=== PATIENT | female | born 1950 | race Two or more races ===

== ENCOUNTER 2021-07-07 10:01 | Day surgery (SDC) | payer MEDICAID ==
[~2021-07-07] VITALS: Ht 152.4 cm; Wt 57.6 kg
[2021-07-07] MEDS ORDERED: IV SET PRIMARY PUMP SET 1 EA INFUS.SET MC ONE (10:32)
[2021-07-07] MEDS ORDERED: IV NS 0.9% 500 ML IV ONE (10:32)
[2021-07-07] MEDS ORDERED: LIDOCAINE HCL/MPF 1% 30 ML VIAL IJ ONE (10:32)
[2021-07-07] MEDS ORDERED: IODIXANOL 150 ML IV ONE (10:32)
[2021-07-07] MEDS ORDERED: FENTANYL PF 100MCG/2ML AMPUL ONE (10:57)
[2021-07-07] MEDS ORDERED: IV NS 0.9% 50 ML IV ONE (10:58)
[2021-07-07] MEDS ORDERED: IODIXANOL 320MG/ML 50 ML IV ONE (11:39)
[2021-07-07] MEDS ORDERED: HEPARIN SODIUM, PORCINE 5000 UNITS/1 ML VIAL ONE (11:40)
[2021-07-07] MEDS ORDERED: CLOPIDOGREL BISULFATE 300 MG TABLET ONE (12:13)
--- NOTE | 2021-07-07 13:10 | NUR ---
RN NOTES RECEIVED PT FROM JOINTER OPERATOR STAFF VIA BED, PT IS AWAKE, ALERT AND ORIENTED, [place]ET[place]ESE SPEAKING, DENIES PAIN, NOT IN DISTRESS, AT BEDSIDE, KEPT COMFORTABLE IN BED, ROOM SET UP ORIENTATION PROVIDED TO PT THROUGH A [place]ESE SPEAKING STAFF, VERBALIZED UNDERSTANDING, MIDLINE AT RIGHT UPPER ARM IN PLACE, NO BLEEDING NOTED TO CATH SITE AT RIGHT GROIN, NO BLEEDING NOTED AT AV SHUNT, VITALS TAKEN, POST PROCEDURE ORDERS NOTED. VS BP 159/72 P 75 RR 20 TEMP 97.6 O2SAT 100% AT ROOM AIR.
--- NOTE | 2021-07-07 15:15 | NUR ---
RN NOTES PT IN BED, RESTING, KEPT PT FLAT IN BED ORDERED, RECEIVED ORDERS FROM DR. ROMERO TO TRANSFER PT BACK TO [facility], NO BLEEDING NOTED TO SITE, TRANSPORTATION ARRANGED BY JEWELRY MECHANIC, REPORT GIVEN TO KANNAN GRANT AT [facility], BP 142/72 P 79 O2SAT 99% ON ROOM AIR, PT PICKED UP BY 2 AMBULANCE PERSONNEL, LEFT VIA GUERNEY IN STABLE CONDITION.
[2021-07-30] MEDS ORDERED: SODI473S8 TOP (14:09)
[2021-07-30] MEDS ORDERED: Prosource PO (14:09)
[2021-07-30] MEDS ORDERED: ACET325T53 PO (14:09)
[2021-07-30] MEDS ORDERED: LEVO50TA PO (14:09)
[2021-07-30] MEDS ORDERED: Valsartan 80MG PO (14:09)
[2021-07-30] MEDS ORDERED: METO25TA20 PO (14:09)
[2021-07-30] MEDS ORDERED: SEVE800T7 PO (14:09)
[2021-07-30] MEDS ORDERED: ASPI-1169 PO (14:09)
[2021-07-30] MEDS ORDERED: EPOE40007 IV (14:09)
[2021-07-30] MEDS ORDERED: PANT40TA49 PO (14:09)
[2021-07-30] MEDS ORDERED: CLOP75TA15 PO (14:09)
== END 2021-07-07 15:00 | disposition short-term general hospital (02) ==
LOC: CATHLAB 10:01
PROVIDERS: ATTEND Internal Medicine
DX: I70.212 Atherosclerosis of native arteries of extremities with intermittent claudication, left leg (principal)
CPT/HCPCS: 37224; 37229; 37232; 75625; 75710; 99152; 99153; C1725 ×2; C1726; C1769 ×2; C1887 ×3; C1894; J1644 ×2; J3010; J3490; J7040; Q9967; 36246; 37184; 37233; G0500

== ENCOUNTER 2021-07-23 04:12 | Inpatient (IN) | payer MEDICAID ==
[~2021-07-23] VITALS: Ht 170.2 cm; Wt 61.7 kg
[2021-07-23 05:52] LABS: BASOPHILS # (AUTO) 0.1 K/uL (0.0-0.2); BASOPHILS % (AUTO) 0.5 % (0.0-2.0); CARBON DIOXIDE 31 mmol/L (21-32); CHLORIDE 94 mmol/L (98-107); CREATININE 2.4 mg/dL (0.6-1.3); EOSINOPHILS % (AUTO) 1.8 % (0.0-6.0); GLUCOSE 132 mg/dL (74-106); HEMATOCRIT 28 % (33-45); LYMPHOCYTES # (AUTO) 0.8 K/uL (0.8-4.8); LYMPHOCYTES % (AUTO) 8.3 % (20.0-44.0); MEAN CORPUSCULAR HGB CONC 33 g/dl (31.0-36.0); MEAN CORPUSCULAR VOLUME 103 fL (82-100); MONOCYTES # (AUTO) 0.8 K/uL (0.1-1.30); MONOCYTES % (AUTO) 8.1 % (2.0-12.0); NEUTROPHILS # (AUTO) 8.3 K/uL (1.8-8.9); NEUTROPHILS % (AUTO) 81.3 % (43.0-81.0); PLATELET COUNT (AUTO) 235 K/uL (150-450); POTASSIUM 3.4 mmol/L (3.5-5.1); RED BLOOD CELL COUNT(AUTO) 2.68 MIL/uL (4.0-5.2); SODIUM SERUM 135 mmol/L (136-145); UREA NITROGEN, BLOOD 14 mg/dL (7-18); WHITE BLOOD COUNT (AUTO) 10.2 K/uL (4.3-11.0)
[2021-07-23 05:53] LABS: BILIRUBIN,URINE MODERATE (NEGATIVE); COLOR,URINE BROWN (YELLOW); LEUKOCYTE ESTERASE ,URINE MODERATE (NEGATIVE); NITRITE, URINE POSITIVE (NEGATIVE); PROTEIN,URINE >=300 mg/dl (NEGATIVE); UGLUCOSE NEGATIVE (NEGATIVE)
[2021-07-23 05:54] LABS: SERUM AMMONIA < 10 umol/L (11-32)
[2021-07-23 05:58] LABS: ACETAMINOPHEN 2 ug/ml (10-30); ALKALINE PHOSPHATASE 453 U/L (46-116); ASPARTATE AMINOTRANSFERASE 12 U/L (15-37); BILIRUBIN,DIRECT 0.3 mg/dL (0.0-0.2); BILIRUBIN,TOTAL 0.5 mg/dL (0.2-1.0); TOTAL PROTEIN, SERUM 7.9 g/dL (6.4-8.2)
[2021-07-23 06:04] LABS: THYROID STIMULATING HORMONE 22.949 uIU/mL (0.358-3.74)
[2021-07-23 06:10] LABS: ALANINE AMINOTRANSFERASE < 6 U/L (12-78)
[2021-07-23 06:11] LABS: ALBUMIN 1.4 g/dL (3.4-5.0); ALCOHOL, BLOOD < 3 mg/dL (0-0)
[2021-07-23 06:43] LABS: BACTERIA,URINE 1+ /HPF (None Seen); RBC,URINE 51-80 /HPF (0-2); WBC,URINE TOO NUMEROUS TO COUN /HPF (0-3)
[2021-07-23 06:44] LABS: SQUAMOUS EPITHELIAL CELL,UR Few /HPF (None Seen); URINE AMORPHOUS URATE Moderate /HPF (None Seen)
[2021-07-23] MEDS ORDERED: CEFTRIAXONE 1 G in IV D5W 50 ML IV ONE (07:00)
[2021-07-23] MEDS ORDERED: CEFTRIAXONE 1GM BAG (ER ONLY) 50 ML IV ONE (07:13)
[2021-07-23] MEDS ORDERED: MAG HYDROX/AL HYDROX/SIMETH 30 ML UDC PO PRN (09:00)
[2021-07-23] MEDS ORDERED: MAGNESIUM HYDROXIDE 30 ML UDC PO PRN (09:00)
[2021-07-23] MEDS ORDERED: ONDANSETRON HCL/PF 4 MG/2 ML VIAL IVP PRN (09:00)
[2021-07-23] MEDS ORDERED: Z GUARD REMEDY 4 OZ OINT TP PRN (09:00)
[2021-07-23 09:18] LABS: MAGNESIUM 2.1 mg/dL (1.8-2.4); PHOSPHORUS 3.5 mg/dL (2.5-4.9)
[2021-07-23] MEDS ORDERED: VALSARTAN 80 MG TABLET ONE (09:50)
[2021-07-23] MEDS ORDERED: CLOPIDOGREL BISULFATE 75 MG TABLET ONE (09:50)
[2021-07-23] MEDS ORDERED: METOPROLOL TARTRATE 25 MG TABLET ONE (09:50)
[2021-07-23] MEDS ORDERED: ASPIRIN EC 81 MG TABLET.DR PO ONE (09:50)
[2021-07-23] MEDS ORDERED: HEPARIN SODIUM, PORCINE 5000 UNITS/1 ML VIAL ONE (09:53)
[2021-07-23] MEDS: ASPIRIN 81 MG TAB.CHEW PO SCH (09:56)
[2021-07-23] MEDS: CLOPIDOGREL BISULFATE 75 MG TABLET PO SCH (09:56)
[2021-07-23] MEDS: METOPROLOL TARTRATE 25 MG TABLET PO SCH ×2 (09:57→16:54)
[2021-07-23] MEDS: HEPARIN SODIUM, PORCINE 5000 UNITS/1 ML VIAL SQ SCH ×2 (09:58→21:31)
[2021-07-23] MEDS: VALSARTAN 80 MG TABLET PO SCH ×2 (09:58→16:54)
[2021-07-23] MEDS: SEVELAMER CARBONATE 800 MG TABLET PO SCH ×2 (10:00→17:43)
[2021-07-23 16:30] VITALS: BP 103/35
[2021-07-23] MEDS: MORPHINE SULFATE INJ 2 MG/ML DISP.SYRIN IV PRN (17:55)
[2021-07-23 20:00] VITALS: BP 126/55
[2021-07-23] MEDS ORDERED: ZOLPIDEM TARTRATE 5 MG TABLET PO PRN (22:00)
[2021-07-24] VITALS: BP 127/63
[2021-07-24 04:00] VITALS: BP 121/62
[2021-07-24] MEDS: MORPHINE SULFATE INJ 2 MG/ML DISP.SYRIN IV PRN ×2 (06:39→22:52)
[2021-07-24] MEDS ORDERED: LEVOTHYROXINE SODIUM 25 MCG TABLET PO SCH (07:30)
[2021-07-24 07:48] LABS: BASOPHILS # (AUTO) 0.1 K/uL (0.0-0.2); BASOPHILS % (AUTO) 0.5 % (0.0-2.0); EOSINOPHILS % (AUTO) 2.1 % (0.0-6.0); HEMATOCRIT 27 % (33-45); HEMOGLOBIN 8.7 g/dL (11.5-14.8); LYMPHOCYTES # (AUTO) 0.8 K/uL (0.8-4.8); LYMPHOCYTES % (AUTO) 7.8 % (20.0-44.0); MEAN CORPUSCULAR HGB CONC 33 g/dl (31.0-36.0); MEAN CORPUSCULAR VOLUME 103 fL (82-100); MONOCYTES # (AUTO) 0.8 K/uL (0.1-1.30); NEUTROPHILS # (AUTO) 8.4 K/uL (1.8-8.9); NEUTROPHILS % (AUTO) 81.6 % (43.0-81.0); PLATELET COUNT (AUTO) 225 K/uL (150-450); RED BLOOD CELL COUNT(AUTO) 2.59 MIL/uL (4.0-5.2); WHITE BLOOD COUNT (AUTO) 10.3 K/uL (4.3-11.0)
[2021-07-24 08:12] LABS: CALCIUM, SERUM 8.4 mg/dL (8.5-10.1); CREATININE 2.7 mg/dL (0.6-1.3); MAGNESIUM 2.1 mg/dL (1.8-2.4); PHOSPHORUS 4.3 mg/dL (2.5-4.9); POTASSIUM 3.8 mmol/L (3.5-5.1)
[2021-07-24] MEDS: CEFTRIAXONE 1 G in IV D5W 50 ML IV SCH (09:06)
[2021-07-24] MEDS: CLOPIDOGREL BISULFATE 75 MG TABLET PO SCH (09:06)
[2021-07-24] MEDS: SEVELAMER CARBONATE 800 MG TABLET PO SCH ×2 (09:06→16:24)
[2021-07-24] MEDS: ASPIRIN 81 MG TAB.CHEW PO SCH (09:06)
[2021-07-24] MEDS: PANTOPRAZOLE 40 MG TABLET.DR PO SCH (09:09)
[2021-07-24] MEDS: HEPARIN SODIUM, PORCINE 5000 UNITS/1 ML VIAL SQ SCH ×2 (09:10→21:32)
[2021-07-24] MEDS: ACETAMINOPHEN 325 MG TABLET PO PRN ×2 (09:12→16:24)
[2021-07-24 09:34] LABS: THYROID STIMULATING HORMONE 28.503 uIU/mL (0.358-3.74)
[2021-07-24] MEDS: VALSARTAN 80 MG TABLET PO SCH ×2 (10:11→16:24)
[2021-07-24] MEDS: METOPROLOL TARTRATE 25 MG TABLET PO SCH ×2 (10:13→16:25)
[2021-07-24] MEDS ORDERED: [UNRECOGNIZED DRUG - CODE] TP (10:33)
[2021-07-24 20:00] VITALS: BP 114/58
[2021-07-25 08:00] VITALS: BP 125/94
[2021-07-25 08:17] LABS: CALCIUM, SERUM 8.2 mg/dL (8.5-10.1); CREATININE 3.1 mg/dL (0.6-1.3); POTASSIUM 4.3 mmol/L (3.5-5.1)
[2021-07-25] MEDS: METOPROLOL TARTRATE 25 MG TABLET PO SCH ×2 (09:00→16:44)
[2021-07-25] MEDS: LEVOTHYROXINE SODIUM 50 MCG TABLET PO SCH (09:41)
[2021-07-25] MEDS: ASPIRIN 81 MG TAB.CHEW PO SCH (09:42)
[2021-07-25] MEDS: PANTOPRAZOLE 40 MG TABLET.DR PO SCH (09:42)
[2021-07-25] MEDS: CLOPIDOGREL BISULFATE 75 MG TABLET PO SCH (09:42)
[2021-07-25] MEDS: SEVELAMER CARBONATE 800 MG TABLET PO SCH ×2 (09:42→18:37)
[2021-07-25] MEDS: VALSARTAN 80 MG TABLET PO SCH ×2 (09:43→17:00)
[2021-07-25] MEDS: HEPARIN SODIUM, PORCINE 5000 UNITS/1 ML VIAL SQ SCH ×2 (09:45→21:00)
[2021-07-25] MEDS: CEFTRIAXONE 1 G in IV D5W 50 ML IV SCH (09:50)
[2021-07-25] MEDS: DAKINS QUARTER STRENGTH (0.125%) 480 ML BOTTLE TOP SCH (09:59)
[2021-07-25] MEDS: PROSOURCE / PROSTAT (PYXIS) 30 ML UDC PO SCH ×3 (11:05→18:37)
[2021-07-25] MEDS: MORPHINE SULFATE INJ 2 MG/ML DISP.SYRIN IV PRN ×2 (11:36→18:54)
[2021-07-25 16:00] VITALS: BP 157/100
[2021-07-25] MEDS ORDERED: EPOETIN ALFA-EPBX 4,000 UNIT/ML VIAL IV PRN (19:00)
[2021-07-25 20:00] VITALS: BP 121/58
[2021-07-26 04:00] VITALS: BP 140/59
[2021-07-26] MEDS: MORPHINE SULFATE INJ 2 MG/ML DISP.SYRIN IV PRN ×2 (06:59→16:40)
[2021-07-26 08:00] VITALS: BP 150/78
[2021-07-26] MEDS: CEFTRIAXONE 1 G in IV D5W 50 ML IV SCH (08:51)
[2021-07-26] MEDS: PANTOPRAZOLE 40 MG TABLET.DR PO SCH (08:51)
[2021-07-26] MEDS: SEVELAMER CARBONATE 800 MG TABLET PO SCH ×2 (08:51→16:28)
[2021-07-26] MEDS: LEVOTHYROXINE SODIUM 50 MCG TABLET PO SCH (08:51)
[2021-07-26] MEDS: HEPARIN SODIUM, PORCINE 5000 UNITS/1 ML VIAL SQ SCH ×3 (08:52→22:15)
[2021-07-26] MEDS: CLOPIDOGREL BISULFATE 75 MG TABLET PO SCH (08:52)
[2021-07-26] MEDS: ASPIRIN 81 MG TAB.CHEW PO SCH (08:53)
[2021-07-26] MEDS: VALSARTAN 80 MG TABLET PO SCH ×2 (08:53→16:30)
[2021-07-26] MEDS: DAKINS QUARTER STRENGTH (0.125%) 480 ML BOTTLE TOP SCH (08:54)
[2021-07-26] MEDS: PROSOURCE / PROSTAT (PYXIS) 30 ML UDC PO SCH ×3 (08:54→16:30)
[2021-07-26] MEDS: METOPROLOL TARTRATE 25 MG TABLET PO SCH ×2 (08:54→16:29)
[2021-07-26 10:46] LABS: CALCIUM, SERUM 7.7 mg/dL (8.5-10.1); CREATININE 2.5 mg/dL (0.6-1.3); POTASSIUM 3.8 mmol/L (3.5-5.1)
[2021-07-26] MEDS ORDERED: IOHEXOL-350 100 ML VIAL IV ONE (15:38)
[2021-07-26 16:00] VITALS: BP 126/57
[2021-07-26 20:00] VITALS: BP 131/82
[2021-07-27] VITALS: BP 152/40
[2021-07-27 04:00] VITALS: BP 143/59
[2021-07-27 07:00] LABS: BASOPHILS # (AUTO) 0.1 K/uL (0.0-0.2); BASOPHILS % (AUTO) 0.6 % (0.0-2.0); EOSINOPHILS % (AUTO) 4.2 % (0.0-6.0); HEMATOCRIT 28 % (33-45); HEMOGLOBIN 9.3 g/dL (11.5-14.8); LYMPHOCYTES # (AUTO) 0.9 K/uL (0.8-4.8); LYMPHOCYTES % (AUTO) 11.4 % (20.0-44.0); MEAN CORPUSCULAR HGB CONC 33 g/dl (31.0-36.0); MEAN CORPUSCULAR VOLUME 103 fL (82-100); MONOCYTES # (AUTO) 0.8 K/uL (0.1-1.30); MONOCYTES % (AUTO) 10.1 % (2.0-12.0); NEUTROPHILS # (AUTO) 5.9 K/uL (1.8-8.9); NEUTROPHILS % (AUTO) 73.7 % (43.0-81.0); PLATELET COUNT (AUTO) 203 K/uL (150-450)
[2021-07-27 07:14] LABS: CREATININE 2.8 mg/dL (0.6-1.3); POTASSIUM 3.9 mmol/L (3.5-5.1)
[2021-07-27] MEDS: LEVOTHYROXINE SODIUM 50 MCG TABLET PO SCH (08:45)
[2021-07-27] MEDS: SEVELAMER CARBONATE 800 MG TABLET PO SCH ×2 (08:45→17:13)
[2021-07-27] MEDS: PANTOPRAZOLE 40 MG TABLET.DR PO SCH (08:45)
[2021-07-27] MEDS: ASPIRIN 81 MG TAB.CHEW PO SCH (08:46)
[2021-07-27] MEDS: CLOPIDOGREL BISULFATE 75 MG TABLET PO SCH (08:46)
[2021-07-27 08:47] VITALS: BP 112/49
[2021-07-27] MEDS: HEPARIN SODIUM, PORCINE 5000 UNITS/1 ML VIAL SQ SCH ×2 (08:49→20:12)
[2021-07-27] MEDS: CEFTRIAXONE 1 G in IV D5W 50 ML IV SCH (08:50)
[2021-07-27] MEDS: METOPROLOL TARTRATE 25 MG TABLET PO SCH ×2 (08:51→17:56)
[2021-07-27] MEDS: VALSARTAN 80 MG TABLET PO SCH ×2 (08:51→17:57)
[2021-07-27] MEDS: PROSOURCE / PROSTAT (PYXIS) 30 ML UDC PO SCH ×3 (08:52→17:11)
[2021-07-27] MEDS: DAKINS QUARTER STRENGTH (0.125%) 480 ML BOTTLE TOP SCH (09:34)
[2021-07-27] MEDS: ACETAMINOPHEN 325 MG TABLET PO PRN (10:30)
[2021-07-27] MEDS: LEVOTHYROXINE SODIUM 25 MCG TABLET PO SCH (12:43)
[2021-07-27 12:57] VITALS: BP 145/61
[2021-07-27 16:07] VITALS: BP 160/58
[2021-07-27 20:00] VITALS: BP 113/74
[2021-07-28] VITALS: BP 146/45
[2021-07-28 05:00] VITALS: BP 117/73
[2021-07-28 06:56] LABS: CALCIUM, SERUM 7.7 mg/dL (8.5-10.1); CREATININE 2.2 mg/dL (0.6-1.3); POTASSIUM 3.8 mmol/L (3.5-5.1)
[2021-07-28 07:02] LABS: BASOPHILS # (AUTO) 0.1 K/uL (0.0-0.2); BASOPHILS % (AUTO) 0.6 % (0.0-2.0); EOSINOPHILS % (AUTO) 2.7 % (0.0-6.0); HEMATOCRIT 28 % (33-45); HEMOGLOBIN 9.4 g/dL (11.5-14.8); LYMPHOCYTES # (AUTO) 0.8 K/uL (0.8-4.8); LYMPHOCYTES % (AUTO) 9.2 % (20.0-44.0); MEAN CORPUSCULAR HGB CONC 34 g/dl (31.0-36.0); MEAN CORPUSCULAR VOLUME 103 fL (82-100); MONOCYTES # (AUTO) 0.9 K/uL (0.1-1.30); MONOCYTES % (AUTO) 10.4 % (2.0-12.0); NEUTROPHILS # (AUTO) 6.6 K/uL (1.8-8.9); NEUTROPHILS % (AUTO) 77.1 % (43.0-81.0); PLATELET COUNT (AUTO) 202 K/uL (150-450); RED BLOOD CELL COUNT(AUTO) 2.71 MIL/uL (4.0-5.2); WHITE BLOOD COUNT (AUTO) 8.6 K/uL (4.3-11.0)
[2021-07-28] MEDS: LEVOTHYROXINE SODIUM 50 MCG TABLET PO SCH (07:30)
[2021-07-28 08:00] VITALS: BP 106/45
[2021-07-28] MEDS: METOPROLOL TARTRATE 25 MG TABLET PO SCH ×2 (09:00→17:00)
[2021-07-28] MEDS: VALSARTAN 80 MG TABLET PO SCH ×2 (09:00→17:00)
[2021-07-28] MEDS: PANTOPRAZOLE 40 MG TABLET.DR PO SCH (10:06)
[2021-07-28] MEDS: ASPIRIN 81 MG TAB.CHEW PO SCH (10:06)
[2021-07-28] MEDS: CLOPIDOGREL BISULFATE 75 MG TABLET PO SCH (10:06)
[2021-07-28] MEDS: LEVOTHYROXINE SODIUM 25 MCG TABLET PO SCH (10:07)
[2021-07-28] MEDS: SEVELAMER CARBONATE 800 MG TABLET PO SCH ×2 (10:07→16:59)
[2021-07-28] MEDS: PROSOURCE / PROSTAT (PYXIS) 30 ML UDC PO SCH ×3 (10:08→17:00)
[2021-07-28] MEDS: HEPARIN SODIUM, PORCINE 5000 UNITS/1 ML VIAL SQ SCH ×2 (10:10→21:06)
[2021-07-28] MEDS: CEFTRIAXONE 1 G in IV D5W 50 ML IV SCH (10:18)
[2021-07-28] MEDS: DAKINS QUARTER STRENGTH (0.125%) 480 ML BOTTLE TOP SCH (10:35)
[2021-07-28 12:00] VITALS: BP 157/107
[2021-07-28 16:00] VITALS: BP 152/55
[2021-07-28] MEDS: ACETAMINOPHEN 325 MG TABLET PO PRN (16:59)
[2021-07-28 20:00] VITALS: BP 122/48
[2021-07-29] VITALS: BP 147/48
[2021-07-29 04:00] VITALS: BP 150/53
[2021-07-29 06:55] LABS: BASOPHILS # (AUTO) 0.1 K/uL (0.0-0.2); BASOPHILS % (AUTO) 0.8 % (0.0-2.0); EOSINOPHILS % (AUTO) 3.6 % (0.0-6.0); HEMATOCRIT 25 % (33-45); HEMOGLOBIN 8.3 g/dL (11.5-14.8); LYMPHOCYTES % (AUTO) 13.7 % (20.0-44.0); MEAN CORPUSCULAR HGB CONC 33 g/dl (31.0-36.0); MEAN CORPUSCULAR VOLUME 103 fL (82-100); MONOCYTES # (AUTO) 0.9 K/uL (0.1-1.30); MONOCYTES % (AUTO) 11.3 % (2.0-12.0); NEUTROPHILS # (AUTO) 5.4 K/uL (1.8-8.9); NEUTROPHILS % (AUTO) 70.6 % (43.0-81.0); PLATELET COUNT (AUTO) 206 K/uL (150-450); RED BLOOD CELL COUNT(AUTO) 2.45 MIL/uL (4.0-5.2); WHITE BLOOD COUNT (AUTO) 7.6 K/uL (4.3-11.0)
[2021-07-29] MEDS: PANTOPRAZOLE 40 MG TABLET.DR PO SCH (07:30)
[2021-07-29] MEDS: LEVOTHYROXINE SODIUM 25 MCG TABLET PO SCH (07:30)
[2021-07-29] MEDS: LEVOTHYROXINE SODIUM 50 MCG TABLET PO SCH (07:30)
[2021-07-29 07:32] LABS: CALCIUM, SERUM 7.8 mg/dL (8.5-10.1); CREATININE 2.7 mg/dL (0.6-1.3); POTASSIUM 4.1 mmol/L (3.5-5.1)
[2021-07-29 08:00] VITALS: BP 134/80
[2021-07-29] MEDS: METOPROLOL TARTRATE 25 MG TABLET PO SCH ×2 (09:00→17:00)
[2021-07-29] MEDS: SEVELAMER CARBONATE 800 MG TABLET PO SCH ×2 (09:00→17:00)
[2021-07-29] MEDS: PROSOURCE / PROSTAT (PYXIS) 30 ML UDC PO SCH ×3 (09:00→18:01)
[2021-07-29] MEDS: CLOPIDOGREL BISULFATE 75 MG TABLET PO SCH (09:00)
[2021-07-29] MEDS: CEFTRIAXONE 1 G in IV D5W 50 ML IV SCH (09:00)
[2021-07-29] MEDS: VALSARTAN 80 MG TABLET PO SCH ×2 (09:00→17:00)
[2021-07-29] MEDS: ASPIRIN 81 MG TAB.CHEW PO SCH (09:00)
[2021-07-29] MEDS: DAKINS QUARTER STRENGTH (0.125%) 480 ML BOTTLE TOP SCH (09:00)
[2021-07-29] MEDS: HEPARIN SODIUM, PORCINE 5000 UNITS/1 ML VIAL SQ SCH ×3 (09:00→21:18)
[2021-07-29] MEDS: MORPHINE SULFATE INJ 2 MG/ML DISP.SYRIN IV PRN ×2 (11:57→20:24)
[2021-07-29 16:00] VITALS: BP 101/53
[2021-07-29 20:00] VITALS: BP 115/49
[2021-07-30] VITALS: BP 121/55
[2021-07-30] MEDS: MORPHINE SULFATE INJ 2 MG/ML DISP.SYRIN IV PRN ×4 (02:44→23:18)
[2021-07-30 04:00] VITALS: BP 121/45
[2021-07-30 06:38] LABS: BASOPHILS # (AUTO) 0.1 K/uL (0.0-0.2); BASOPHILS % (AUTO) 0.7 % (0.0-2.0); EOSINOPHILS % (AUTO) 3.3 % (0.0-6.0); HEMATOCRIT 26 % (33-45); HEMOGLOBIN 8.7 g/dL (11.5-14.8); LYMPHOCYTES # (AUTO) 0.9 K/uL (0.8-4.8); LYMPHOCYTES % (AUTO) 10.2 % (20.0-44.0); MEAN CORPUSCULAR HGB CONC 33 g/dl (31.0-36.0); MEAN CORPUSCULAR VOLUME 104 fL (82-100); MONOCYTES % (AUTO) 12.1 % (2.0-12.0); NEUTROPHILS # (AUTO) 6.2 K/uL (1.8-8.9); NEUTROPHILS % (AUTO) 73.7 % (43.0-81.0); PLATELET COUNT (AUTO) 227 K/uL (150-450); RED BLOOD CELL COUNT(AUTO) 2.53 MIL/uL (4.0-5.2); WHITE BLOOD COUNT (AUTO) 8.4 K/uL (4.3-11.0)
[2021-07-30 07:11] LABS: CALCIUM, SERUM 7.7 mg/dL (8.5-10.1); CREATININE 2.1 mg/dL (0.6-1.3); POTASSIUM 3.4 mmol/L (3.5-5.1)
[2021-07-30 08:00] VITALS: BP 148/54
[2021-07-30] MEDS: LEVOTHYROXINE SODIUM 50 MCG TABLET PO SCH (08:16)
[2021-07-30] MEDS: PANTOPRAZOLE 40 MG TABLET.DR PO SCH (08:16)
[2021-07-30] MEDS: SEVELAMER CARBONATE 800 MG TABLET PO SCH ×2 (08:16→17:23)
[2021-07-30] MEDS: ASPIRIN 81 MG TAB.CHEW PO SCH (08:16)
[2021-07-30] MEDS: LEVOTHYROXINE SODIUM 25 MCG TABLET PO SCH (08:16)
[2021-07-30] MEDS: CLOPIDOGREL BISULFATE 75 MG TABLET PO SCH (08:16)
[2021-07-30] MEDS: PROSOURCE / PROSTAT (PYXIS) 30 ML UDC PO SCH ×3 (08:19→17:35)
[2021-07-30] MEDS: METOPROLOL TARTRATE 25 MG TABLET PO SCH ×2 (08:42→17:24)
[2021-07-30] MEDS: VALSARTAN 80 MG TABLET PO SCH ×2 (08:42→17:24)
[2021-07-30] MEDS: DAKINS QUARTER STRENGTH (0.125%) 480 ML BOTTLE TOP SCH (08:45)
[2021-07-30] MEDS: CEFTRIAXONE 1 G in IV D5W 50 ML IV SCH (09:38)
[2021-07-30] MEDS: POTASSIUM CHLORIDE 20 MEQ TAB.PRT.SR PO SCH ×2 (10:22→11:51)
[2021-07-30] MEDS ORDERED: ACET325T53 PO (14:09)
[2021-07-30] MEDS ORDERED: Valsartan 80MG PO (14:09)
[2021-07-30] MEDS ORDERED: METO25TA20 PO (14:09)
[2021-07-30] MEDS ORDERED: SEVE800T7 PO (14:09)
[2021-07-30] MEDS ORDERED: SODI473S8 TOP (14:09)
[2021-07-30] MEDS ORDERED: ASPI-1169 PO (14:09)
[2021-07-30] MEDS ORDERED: PANT40TA49 PO (14:09)
[2021-07-30] MEDS ORDERED: LEVO50TA PO (14:09)
[2021-07-30] MEDS ORDERED: CLOP75TA15 PO (14:09)
[2021-07-30] MEDS ORDERED: EPOE40007 IV (14:09)
[2021-07-30] MEDS ORDERED: Prosource PO (14:09)
[2021-07-30 16:00] VITALS: BP 120/53
[2021-07-30 20:00] VITALS: BP 141/48
[2021-07-31] MEDS: MORPHINE SULFATE INJ 2 MG/ML DISP.SYRIN IV PRN ×3 (06:35→15:06)
[2021-07-31 06:58] LABS: BASOPHILS % (AUTO) 0.6 % (0.0-2.0); EOSINOPHILS % (AUTO) 4.1 % (0.0-6.0); HEMATOCRIT 25 % (33-45); HEMOGLOBIN 8.4 g/dL (11.5-14.8); LYMPHOCYTES # (AUTO) 0.9 K/uL (0.8-4.8); LYMPHOCYTES % (AUTO) 11.6 % (20.0-44.0); MEAN CORPUSCULAR HGB CONC 33 g/dl (31.0-36.0); MEAN CORPUSCULAR VOLUME 104 fL (82-100); MONOCYTES # (AUTO) 0.9 K/uL (0.1-1.30); MONOCYTES % (AUTO) 11.7 % (2.0-12.0); NEUTROPHILS # (AUTO) 5.7 K/uL (1.8-8.9); PLATELET COUNT (AUTO) 251 K/uL (150-450); WHITE BLOOD COUNT (AUTO) 7.9 K/uL (4.3-11.0)
[2021-07-31 07:14] LABS: CALCIUM, SERUM 7.8 mg/dL (8.5-10.1); CREATININE 2.5 mg/dL (0.6-1.3); POTASSIUM 4.2 mmol/L (3.5-5.1)
[2021-07-31 08:00] VITALS: BP 105/84
[2021-07-31] MEDS: ASPIRIN 81 MG TAB.CHEW PO SCH (08:22)
[2021-07-31] MEDS: CLOPIDOGREL BISULFATE 75 MG TABLET PO SCH (08:22)
[2021-07-31] MEDS: PANTOPRAZOLE 40 MG TABLET.DR PO SCH (08:22)
[2021-07-31] MEDS: SEVELAMER CARBONATE 800 MG TABLET PO SCH ×2 (08:23→17:40)
[2021-07-31] MEDS: DAKINS QUARTER STRENGTH (0.125%) 480 ML BOTTLE TOP SCH (08:23)
[2021-07-31] MEDS: LEVOTHYROXINE SODIUM 50 MCG TABLET PO SCH (08:23)
[2021-07-31] MEDS: LEVOTHYROXINE SODIUM 25 MCG TABLET PO SCH (08:23)
[2021-07-31] MEDS: PROSOURCE / PROSTAT (PYXIS) 30 ML UDC PO SCH ×3 (08:27→17:40)
[2021-07-31] MEDS: VALSARTAN 80 MG TABLET PO SCH ×2 (09:00→17:00)
[2021-07-31] MEDS: METOPROLOL TARTRATE 25 MG TABLET PO SCH ×2 (09:00→17:00)
[2021-07-31 16:07] VITALS: BP 94/35
[2021-07-31 20:30] VITALS: BP 109/37
[2021-08-01 04:33] VITALS: BP 138/58
[2021-08-01 07:02] LABS: BASOPHILS # (AUTO) 0.1 K/uL (0.0-0.2); EOSINOPHILS % (AUTO) 5.2 % (0.0-6.0); HEMATOCRIT 25 % (33-45); HEMOGLOBIN 8.1 g/dL (11.5-14.8); LYMPHOCYTES # (AUTO) 0.8 K/uL (0.8-4.8); LYMPHOCYTES % (AUTO) 11.5 % (20.0-44.0); MEAN CORPUSCULAR HGB CONC 33 g/dl (31.0-36.0); MEAN CORPUSCULAR VOLUME 104 fL (82-100); MONOCYTES # (AUTO) 0.7 K/uL (0.1-1.30); NEUTROPHILS # (AUTO) 4.9 K/uL (1.8-8.9); NEUTROPHILS % (AUTO) 72.3 % (43.0-81.0); PLATELET COUNT (AUTO) 234 K/uL (150-450); RED BLOOD CELL COUNT(AUTO) 2.38 MIL/uL (4.0-5.2); WHITE BLOOD COUNT (AUTO) 6.7 K/uL (4.3-11.0)
[2021-08-01 07:06] LABS: CALCIUM, SERUM 7.6 mg/dL (8.5-10.1); CREATININE 2.9 mg/dL (0.6-1.3); POTASSIUM 4.4 mmol/L (3.5-5.1)
[2021-08-01 08:00] VITALS: BP 153/60
[2021-08-01] MEDS: MORPHINE SULFATE INJ 2 MG/ML DISP.SYRIN IV PRN (08:21)
[2021-08-01] MEDS: PANTOPRAZOLE 40 MG TABLET.DR PO SCH (08:21)
[2021-08-01] MEDS: CLOPIDOGREL BISULFATE 75 MG TABLET PO SCH (08:21)
[2021-08-01] MEDS: SEVELAMER CARBONATE 800 MG TABLET PO SCH ×2 (08:21→16:55)
[2021-08-01] MEDS: ASPIRIN 81 MG TAB.CHEW PO SCH (08:21)
[2021-08-01] MEDS: LEVOTHYROXINE SODIUM 50 MCG TABLET PO SCH (08:21)
[2021-08-01] MEDS: VALSARTAN 80 MG TABLET PO SCH ×2 (08:22→16:56)
[2021-08-01] MEDS: METOPROLOL TARTRATE 25 MG TABLET PO SCH ×2 (08:22→16:55)
[2021-08-01] MEDS: DAKINS QUARTER STRENGTH (0.125%) 480 ML BOTTLE TOP SCH (08:23)
[2021-08-01] MEDS: PROSOURCE / PROSTAT (PYXIS) 30 ML UDC PO SCH ×3 (09:17→16:55)
[2021-08-01] MEDS: LEVOTHYROXINE SODIUM 25 MCG TABLET PO SCH (09:20)
[2021-08-01] MEDS: CEFEPIME 2 GM in IV D5W 100 ML IV SCH (14:55)
[2021-08-01 16:00] VITALS: BP 153/60
[2021-08-01 20:41] VITALS: BP 141/43
[2021-08-01] MEDS ORDERED: LIDOCAINE 1%-EPI 1:100,000 20 ML VIAL TP ONE (21:30)
[2021-08-01] MEDS ORDERED: SILVER NITRATE APPLICATOR 1 EA BOX TP SCH (21:30)
[2021-08-02] MEDS ORDERED: ACETAMINOPHEN 325 MG TABLET ONE (03:15)
[2021-08-02] MEDS: ACETAMINOPHEN 325 MG TABLET PO PRN (03:16)
[2021-08-02] MEDS ORDERED: PANTOPRAZOLE 40 MG TABLET.DR PO ONE (06:47)
[2021-08-02] MEDS: PANTOPRAZOLE 40 MG TABLET.DR PO SCH (06:48)
[2021-08-02 07:36] LABS: BASOPHILS # (AUTO) 0.1 K/uL (0.0-0.2); BASOPHILS % (AUTO) 0.9 % (0.0-2.0); EOSINOPHILS % (AUTO) 5.3 % (0.0-6.0); HEMATOCRIT 23 % (33-45); HEMOGLOBIN 7.6 g/dL (11.5-14.8); LYMPHOCYTES # (AUTO) 0.9 K/uL (0.8-4.8); LYMPHOCYTES % (AUTO) 13.6 % (20.0-44.0); MEAN CORPUSCULAR HGB CONC 33 g/dl (31.0-36.0); MEAN CORPUSCULAR VOLUME 104 fL (82-100); MONOCYTES # (AUTO) 0.7 K/uL (0.1-1.30); MONOCYTES % (AUTO) 10.8 % (2.0-12.0); NEUTROPHILS # (AUTO) 4.5 K/uL (1.8-8.9); NEUTROPHILS % (AUTO) 69.4 % (43.0-81.0); PLATELET COUNT (AUTO) 240 K/uL (150-450); RED BLOOD CELL COUNT(AUTO) 2.25 MIL/uL (4.0-5.2); WHITE BLOOD COUNT (AUTO) 6.5 K/uL (4.3-11.0)
[2021-08-02 08:00] VITALS: BP 139/52
[2021-08-02 08:01] LABS: CALCIUM, SERUM 7.8 mg/dL (8.5-10.1); CREATININE 3.6 mg/dL (0.6-1.3); MAGNESIUM 2.2 mg/dL (1.8-2.4); PHOSPHORUS 4.6 mg/dL (2.5-4.9); POTASSIUM 4.4 mmol/L (3.5-5.1)
[2021-08-02] MEDS: CEFEPIME 2 GM in IV D5W 100 ML IV SCH (08:16)
[2021-08-02] MEDS: METOPROLOL TARTRATE 25 MG TABLET PO SCH ×2 (09:32→16:06)
[2021-08-02] MEDS: VALSARTAN 80 MG TABLET PO SCH ×2 (09:32→16:06)
[2021-08-02] MEDS: PROSOURCE / PROSTAT (PYXIS) 30 ML UDC PO SCH ×3 (09:32→16:06)
[2021-08-02] MEDS: LEVOTHYROXINE SODIUM 50 MCG TABLET PO SCH (09:32)
[2021-08-02] MEDS: CLOPIDOGREL BISULFATE 75 MG TABLET PO SCH (09:32)
[2021-08-02] MEDS: LEVOTHYROXINE SODIUM 25 MCG TABLET PO SCH (09:32)
[2021-08-02] MEDS: ASPIRIN 81 MG TAB.CHEW PO SCH (09:32)
[2021-08-02] MEDS: SEVELAMER CARBONATE 800 MG TABLET PO SCH ×2 (09:32→16:06)
[2021-08-02] MEDS: DAKINS QUARTER STRENGTH (0.125%) 480 ML BOTTLE TOP SCH (09:33)
[2021-08-02] MEDS: MORPHINE SULFATE INJ 2 MG/ML DISP.SYRIN IV PRN (09:52)
[2021-08-02] MEDS ORDERED: CEFE2FRO IV (10:02)
[2021-08-02] MEDS ORDERED: VANC1VIA34 XX (10:02)
[2021-08-02 20:00] VITALS: BP 150/66
[2021-08-03 08:00] VITALS: BP 131/64
[2021-08-03] MEDS: PANTOPRAZOLE 40 MG TABLET.DR PO SCH (08:12)
[2021-08-03] MEDS: LEVOTHYROXINE SODIUM 50 MCG TABLET PO SCH (08:12)
[2021-08-03] MEDS: LEVOTHYROXINE SODIUM 25 MCG TABLET PO SCH (08:12)
[2021-08-03] MEDS: CLOPIDOGREL BISULFATE 75 MG TABLET PO SCH (08:13)
[2021-08-03] MEDS: ASPIRIN 81 MG TAB.CHEW PO SCH (08:13)
[2021-08-03] MEDS: SEVELAMER CARBONATE 800 MG TABLET PO SCH ×2 (08:15→18:28)
[2021-08-03] MEDS: PROSOURCE / PROSTAT (PYXIS) 30 ML UDC PO SCH ×3 (08:16→17:00)
[2021-08-03] MEDS: CEFEPIME 2 GM in IV D5W 100 ML IV SCH (08:17)
[2021-08-03] MEDS: VALSARTAN 80 MG TABLET PO SCH ×2 (08:30→18:28)
[2021-08-03] MEDS: METOPROLOL TARTRATE 25 MG TABLET PO SCH ×2 (08:30→18:28)
[2021-08-03] MEDS: DAKINS QUARTER STRENGTH (0.125%) 480 ML BOTTLE TOP SCH (08:30)
[2021-08-03] MEDS ORDERED: CEFT2FRO2 IV (09:07)
[2021-08-03] MEDS ORDERED: VANC1VIA34 XX (09:07)
[2021-08-03 16:00] VITALS: BP 148/90
[2021-08-03 18:28] VITALS: BP 148/90
== END 2021-08-03 19:30 | DRG 951 ==
LOC: ER 04:26 → TRANSITION 09:30 → TELE2 15:55 → MEDSG2 18:48 → TELE2 07-26 21:17 → TELE 07-27 06:49 → MED 07-30 09:37
PROVIDERS: ADMIT Nurse Practitioner Acute Care; ATTEND Nurse Practitioner Acute Care
PROC: 5A1D70Z Performance of Urinary Filtration, Intermittent, Less than 6 Hours Per Day (ICD-10-PCS; 2021-07-25)
PROC: 0KBP0ZZ Excision of Left Hip Muscle, Open Approach (ICD-10-PCS; principal; 2021-07-27)
PROC: 0KBN0ZZ Excision of Right Hip Muscle, Open Approach (ICD-10-PCS; 2021-07-27)
PROC: 0KBP0ZZ Excision of Left Hip Muscle, Open Approach (ICD-10-PCS; 2021-08-02)
PROC: 0KBN0ZZ Excision of Right Hip Muscle, Open Approach (ICD-10-PCS; 2021-08-02)
DX: N39.0 Urinary tract infection, site not specified (principal); G92.8 Other toxic encephalopathy; E43 Unspecified severe protein-calorie malnutrition; L89.154 Pressure ulcer of sacral region, stage 4; I13.2 Hypertensive heart and chronic kidney disease with heart failure and with stage 5 chronic kidney disease, or end stage renal disease; E11.51 Type 2 diabetes mellitus with diabetic peripheral angiopathy without gangrene; I70.263 Atherosclerosis of native arteries of extremities with gangrene, bilateral legs; E11.52 Type 2 diabetes mellitus with diabetic peripheral angiopathy with gangrene; R18.8 Other ascites; B96.89 Other specified bacterial agents as the cause of diseases classified elsewhere; E87.1 Hypo-osmolality and hyponatremia; K83.8 Other specified diseases of biliary tract; N18.6 End stage renal disease; Z99.2 Dependence on renal dialysis; I50.9 Heart failure, unspecified; E11.22 Type 2 diabetes mellitus with diabetic chronic kidney disease; Z20.822 Contact with and (suspected) exposure to COVID-19; E03.9 Hypothyroidism, unspecified; D64.9 Anemia, unspecified; I70.0 Atherosclerosis of aorta; G89.29 Other chronic pain; E11.69 Type 2 diabetes mellitus with other specified complication; M86.662 Other chronic osteomyelitis, left tibia and fibula; Z98.890 Other specified postprocedural states; Z86.73 Personal history of transient ischemic attack (TIA), and cerebral infarction without residual deficits; Z74.09 Other reduced mobility; Z79.02 Long term (current) use of antithrombotics/antiplatelets; M48.56XA Collapsed vertebra, not elsewhere classified, lumbar region, initial encounter for fracture; M20.41 Other hammer toe(s) (acquired), right foot; Z79.890 Hormone replacement therapy; I70.1 Atherosclerosis of renal artery; K21.9 Gastro-esophageal reflux disease without esophagitis; T14.8XXA Other injury of unspecified body region, initial encounter; X58.XXXA Exposure to other specified factors, initial encounter; Y92.9 Unspecified place or not applicable
CPT/HCPCS: 36415; 70450-TC; 71045-TC; 73610-TC; 73650-TC; 80048-TC; 80076-TC; 81001; 82140-TC; 82728-TC; 83540-TC; 83735-TC; 84100-TC; 84439-TC; 84443-TC; 84484-TC; 85025-TC; 85730-TC; 86706; 87040-TC; 87081-TC; 87086-TC; 87340; 90935-TC; 92526; 92611-TC; 93307-TC; A6253; A6403; C9803; G0378; G0480; J0692; J0696; J0885; J1644; J2270; J3490; J7050; J7060; Q9967